=== PATIENT | female | born 1990 | race African-American/Black ===

== ENCOUNTER 2018-11-07 14:49 | Emergency (ER) | payer OTHER ==
[~2018-11-07] VITALS: Ht 170.2 cm; Wt 143.6 kg
[2018-11-07 14:51] VITALS: TEMP 97.9
[2018-11-07 15:18] LABS: COLLECTION METHOD CLEAN CATCH
[2018-11-07 15:32] LABS: MUCOUS Present /lpf; PH 5 (5-8); URINE APPEARANCE Cloudy; URINE BACTERIA Rare /hpf; URINE BILIRUBIN Negative (NEGATIVE); URINE BLOOD Negative (NEGATIVE); URINE COLOR Yellow; URINE GLUCOSE Negative (NEGATIVE); URINE KETONE 2+ (NEGATIVE); URINE LEUKOCYTE ESTERASE Negative (NEGATIVE); URINE NITRATE Negative (NEGATIVE); URINE PROTEIN(semi-quant) 1+ (NEGATIVE); URINE UROBILINOGEN >=4.0 mg/dL (NEGATIVE)
[2018-11-07 15:35] LABS: BASO % 0.2 % (0.0-2.0); EOS # 0.1 (0.0-0.7); EOS % 1.4 % (0-4.0); GRAN # 7.3 (1.4-6.5); GRAN % 79.3 % (42.2-75.2); HEMATOCRIT 42.5 % (37.0-47.0); LYMPH # 1.3 (1.2-3.4); LYMPH % 14.3 % (20.0-51.0); MEAN CELL VOLUME 87 fl (80.0-100.0); MEAN CORPUSCULAR HEMOGLOBIN 29 pg (27.0-31.0); MEAN CORPUSCULAR HGB CONC 33 g/dl (33.0-37.0); MEAN PLATELET VOLUME 10.2 fl (7.4-10.4); MONO # 0.4 (0.1-0.6); MONO % 4.5 % (1.7-9.3); PLATELET COUNT 295 K/mm3 (130-400); REDCELL DISTRIBUTION WIDTH-CV 13.5 % (11.5-14.5)
[2018-11-07 15:43] LABS: ALBUMIN 3.9 gm/dL (3.5-5.0); BILIRUBIN,TOTAL 0.5 mg/dL (0.0-1.0); CALCIUM 9.1 mg/dL (8.4-10.2); CREATININE, serum 0.63 mg/dL (0.52-1.25); POTASSIUM 4.1 mmol/L (3.4-5.0); TOTAL PROTEIN 7.1 gm/dL (6.4-8.2)
[2018-11-07] MEDS ORDERED: ZOFRAN ODT4 MG PO (16:27)
[2018-11-07] MEDS ORDERED: NORCO 325 MG-51 TAB PO (16:27)
[2018-11-07 17:45] VITALS: BP 117/77; PULSE 75
== END 2018-11-07 17:47 | disposition home or self-care (01) ==
LOC: COL.ER 14:49
PROVIDERS: Emergency Medicine
DX: K80.50 Calculus of bile duct without cholangitis or cholecystitis without obstruction (principal)
CPT/HCPCS: J0780; J1170; J1885; J7030

== ENCOUNTER 2018-11-11 08:31 | Day surgery (SDC) | payer OTHER ==
[~2018-11-11] VITALS: Ht 170.2 cm; Wt 142.9 kg
[2018-11-11] VITALS (7 sets, daily range): BP systolic 113–144; BP diastolic 55–72; PULSE 74–85; TEMP 97.8
[~2018-11-11 08:31] MED LIST: NORCO 325 MG-51 TAB PO; ZOFRAN ODT4 MG PO
== END 2018-11-11 15:24 | disposition home or self-care (01) ==
LOC: SDCO 08:31
DX: K80.10 Calculus of gallbladder with chronic cholecystitis without obstruction (principal); Z98.84 Bariatric surgery status; Z79.899 Other long term (current) drug therapy; F17.290 Nicotine dependence, other tobacco product, uncomplicated
CPT/HCPCS: J0690; J1100; J1170; J2405; J2550; J2704; J2765; J3010; J7120